=== PATIENT | female | born 1990 | race African-American/Black ===

== ENCOUNTER 2018-05-23 14:46 | Emergency (ER) | payer OTHER ==
[~2018-05-23] VITALS: Ht 157.5 cm; Wt 49.9 kg
[2018-05-23] MEDS ORDERED: Sodium Chloride 500ML 500 ML IV ONE (14:49)
[2018-05-23] MEDS ORDERED: Morphine Sulfate 4mg/ml Inj (IV USE ONLY) IVP ONE (15:00)
[2018-05-23 15:09] VITALS: BP 139/88
[2018-05-23 15:32] LABS: ANION GAP 10 mmol/L (5-15); BLOOD UREA NITROGEN 9 mg/dL (7-18); CALCIUM 9.5 MG/DL (8.5-10.1); CARBON DIOXIDE 24 MMOL/L (21-32); CHLORIDE 103 MMOL/L (98-107); CREATININE 0.9 MG/DL (0.55-1.30); POTASSIUM 3.5 MMOL/L (3.5-5.1); SODIUM 137 MMOL/L (136-145)
[2018-05-23 15:35] LABS: BASOPHILS % (AUTO) 0.3 % (0.0-2.0); EOSINOPHILS % (AUTO) 0.5 % (0.0-3.0); HEMOGLOBIN 13.9 G/DL (12.0-16.0); LYMPHOCYTES % (AUTO) 14.4 % (20.0-45.0); MEAN CORPUSCULAR VOLUME 76 FL (80-99); MONOCYTES % (AUTO) 2.3 % (1.0-10.0); NEUTROPHILS % (AUTO) 82.5 % (45.0-75.0); PLATELET COUNT 258 K/UL (150-450); RED BLOOD COUNT 5.82 M/UL (4.20-5.40); RED CELL DISTRIBUTION WIDTH 11.6 % (11.6-14.8); WHITE BLOOD COUNT 8.2 K/UL (4.8-10.8)
--- NOTE | 2018-05-23 15:36 | Emergency Room Report ---
History of Present Illness General Chief Complaint: Abdominal Pain Source: Patient Present Illness HPI 27-year-old female presents ED complaining of abdominal pain. Brought in by EMS. States pain started 2 days ago. Sudden onset. Pain is suprapubic, 9 out of 10, sharp, nonradiating. Notes nausea and vomiting. Patient states she's been told she has ovarian cysts in the past. States that she is supposed follow -up with [facility] but has not yet done so. No other aggravating relieving factors. Denies any other associated symptoms Allergies: Coded Allergies: No Known Allergies (Unverified , 05/23/18) Patient History Past Medical History: none Past Surgical History: none Pertinent Family History: none Social History: Denies: smoking, alcohol use, drug use Last Menstrual Period: 05/21/18 Now: No Immunizations: UTD Reviewed Nursing Documentation: PMH: Agreed; PSxH: Agreed Nursing Documentation-PMH Past Medical History: No Stated History Review of Systems All Other Systems: negative except mentioned in HPI Physical Exam Vital Signs Date Time Temp Pulse Resp B/P (MAP) Pulse Ox O2 Delivery O2 Flow Rate FiO2 05/23/18 14:45 97.9 76 18 139/88 99 Room Air 97.9 Sp02 EP Interpretation: reviewed, normal General Appearance: alert, GCS 15, non-toxic, mild distress, thin Head: normocephalic, atraumatic Eyes: bilateral eye normal inspection, bilateral eye PERRL ENT: hearing grossly normal, normal pharynx, no angioedema, normal voice Neck: full range of motion, supple/symm/no masses Respiratory: chest non-tender, lungs clear, normal breath sounds, speaking full sentences Cardiovascular #1: regular rate, rhythm, no edema Cardiovascular #2: 2+ carotid (R), 2+ carotid (L), 2+ radial (R), 2+ radial (L) , 2+ dorsalis pedis (R), 2+ dorsalis pedis (L) Gastrointestinal: normal bowel sounds, soft, non-distended, no guarding, no rebound, tenderness - suprapubic Rectal: deferred Genitourinary: normal inspection, no CVA tenderness Musculoskeletal: back normal, gait/station normal, normal range of motion, non- tender Neurologic: alert, oriented x3, responsive, motor strength/tone normal, sensory intact, speech normal Psychiatric: judgement/insight normal, memory normal, mood/affect normal, no suicidal/homicidal ideation Reflexes: 3+ bicep (R), 3+ bicep (L), 3+ tricep (R), 3+ tricep (L), 3+ knee (R) , 3+ knee (L) Skin: normal color, no rash, warm/dry, well hydrated Lymphatic: no adenopathy Medical Decision Making Diagnostic Impression: Primary Impression: Ovarian cyst Qualified Codes: N83.202 - Unspecified ovarian cyst, left side ER Course Hospital Course 27 year-old F presents to ED with lower abdominal pain Differential diagnosis includes- cystitis, UTI, constipation, ovarian cyst/ torsion Clinical course Patient placed on stretcher. After initial history and physical I ordered labs , IV fluids, pain meds, Pelvic US Labs - no leukocytosis, electrolytes ok, LFTs normal, UA no UTI Pelvic US - L hemorrhagic corpus luteum cyst, no free fluid. good flow to ovary noted Discussed findings with patient. Patient feels better. Patient safe for discharge pending close outpatient follow-up with [facility] I feel this is a highly complex case requiring extensive working including EKG/ Rhythm strip, Xray/CT/US, Blood/urine lab work, repeat exams while in ED, and administration of strong opiates/narcotics for pain control, admission to hospital or close patient follow up. Diagnosis - ovarian cyst Stable and discharged to home with Rx Tylenol #3, Zofran. Followup with PMD. Return to ED if symptoms recur or worsen Labs Test 05/23/18 15:00 05/23/18 16:15 White Blood Count 8.2 K/UL (4.8-10.8) Red Blood Count 5.82 M/UL (4.20-5.40) Hemoglobin 13.9 G/DL (12.0-16.0) Hematocrit 44.0 % (37.0-47.0) Mean Corpuscular Volume 76 FL (80-99) Mean Corpuscular Hemoglobin 23.8 PG (27.0-31.0) Mean Corpuscular Hemoglobin Concent 31.5 G/DL (32.0-36.0) Red Cell Distribution Width 11.6 % (11.6-14.8) Platelet Count 258 K/UL (150-450) Mean Platelet Volume 7.4 FL (6.5-10.1) Neutrophils (%) (Auto) 82.5 % (45.0-75.0) Lymphocytes (%) (Auto) 14.4 % (20.0-45.0) Monocytes (%) (Auto) 2.3 % (1.0-10.0) Eosinophils (%) (Auto) 0.5 % (0.0-3.0) Basophils (%) (Auto) 0.3 % (0.0-2.0) Sodium Level 137 MMOL/L (136-145) Potassium Level 3.5 MMOL/L (3.5-5.1) Chloride Level 103 MMOL/L (98-107) Carbon Dioxide Level 24 MMOL/L (21-32) Anion Gap 10 mmol/L (5-15) Blood Urea Nitrogen 9 mg/dL (7-18) Creatinine 0.9 MG/DL (0.55-1.30) Estimat Glomerular Filtration Rate > 60 mL/min (>60) Glucose Level 85 MG/DL (74-106) Calcium Level 9.5 MG/DL (8.5-10.1) Total Bilirubin 1.1 MG/DL (0.2-1.0) Direct Bilirubin 0.2 MG/DL (0.0-0.3) Aspartate Amino Transf (AST/SGOT) 15 U/L (15-37) Alanine Aminotransferase (ALT/SGPT) 12 U/L (12-78) Alkaline Phosphatase 72 U/L (46-116) Total Protein 7.9 G/DL (6.4-8.2) Albumin 4.5 G/DL (3.4-5.0) Globulin 3.4 g/dL Albumin/Globulin Ratio 1.3 (1.0-2.7) Lipase 89 U/L (73-393) Human Chorionic Gonadotropin, Quant < 1 mIU/mL (1-6) Urine Color Stephanie Urine Appearance Clear Urine pH 7 (4.5-8.0) Urine Specific [place] 1.010 (1.005-1.035) Urine Protein 2+ (NEGATIVE) Urine Glucose (UA) Negative (NEGATIVE) Urine Ketones 4+ (NEGATIVE) Urine Occult Blood 5+ (NEGATIVE) Urine Nitrite Negative (NEGATIVE) Urine Bilirubin 1+ (NEGATIVE) Urine Ictotest Negative (NEGATIVE) Urine Urobilinogen 4 MG/DL (0.0-1.0) Urine Leukocyte Esterase 1+ (NEGATIVE) Urine RBC 20-30 /HPF (0 - 2) Urine WBC 0-2 /HPF (0 - 2) Urine Squamous Epithelial Cells Few /LPF (NONE/OCC) Urine Bacteria Few /HPF (NONE) Urine HCG, Qualitative Negative (NEGATIVE) Urine Opiates Screen Positive (NEGATIVE) Urine Barbiturates Screen Negative (NEGATIVE) Phencyclidine (PCP) Screen Negative (NEGATIVE) Urine Amphetamines Screen Negative (NEGATIVE) Urine Benzodiazepines Screen Negative (NEGATIVE) Urine Cocaine Screen Negative (NEGATIVE) Urine Marijuana (THC) Screen Positive (NEGATIVE) CT/MRI/US Diagnostic Results CT/MRI/US Diagnostic Results : Imaging Test Ordered: Pelvic US Impression Uterus measures 7 cm length by 3.4 cm AP. The endometrium measures 2 mm thick. No myometrial abnormality. There is a small cervical nabothian cyst incidentally noted. No myometrial abnormality. The left ovary measures 2.8 cm in length, demonstrates a 12 mm hemorrhagic corpus luteum. The right ovary measures 2.3 cm in length. No adnexal mass. No free cul-de-sac fluid Last Vital Signs Date Time Temp Pulse Resp B/P (MAP) Pulse Ox O2 Delivery O2 Flow Rate FiO2 05/23/18 15:09 98.5 94 18 139/88 99 Room Air 98.5 Status: improved Disposition: HOME, SELF-CARE Condition: Stable Scripts Ondansetron Odt* (ZOFRAN ODT*) 4 Mg Tab.rapdis 4 MG BC EVERY 6 HOURS PRN for Nausea & Vomiting, #30 TAB 0 Refills Prov: Manolo Hurst MD 05/23/18 Acetaminophen With Codeine (T#3) (TYLENOL #3 TAB*) Y Tab 1 TAB ORAL Q8H PRN for For Pain, #20 TAB Prov: Manolo Hurst MD 05/23/18 Manolo Hurst MD May 23, 2018 15:36
[2018-05-23 15:42] LABS: ALANINE AMINOTRANSFERASE 12 U/L (12-78); ALBUMIN 4.5 G/DL (3.4-5.0); ALBUMIN/GLOBULIN RATIO 1.3 (1.0-2.7); ALKALINE PHOSPHATASE 72 U/L (46-116); ASPARTATE AMINO TRANSFERASE 15 U/L (15-37); BILIRUBIN,TOTAL 1.1 MG/DL (0.2-1.0)
[2018-05-23 15:54] LABS: BILIRUBIN,DIRECT 0.2 MG/DL (0.0-0.3)
--- NOTE | 2018-05-23 16:15 | Diagnostic Imaging Report ---
Indication: Pelvic pain, nausea, non patient Technique: Transabdominal and transvaginal images Comparison: none Findings: Uterus measures 7 cm length by 3.4 cm AP. The endometrium measures 2 mm thick. No myometrial abnormality. There is a small cervical nabothian cyst incidentally noted. No myometrial abnormality. The left ovary measures 2.8 cm in length, demonstrates a 12 mm hemorrhagic corpus luteum. The right ovary measures 2.3 cm in length. No adnexal mass. No free cul-de-sac fluid Impression: Essentially unremarkable exam. Small hemorrhagic corpus luteum and small cervical nabothian cyst incidentally noted
[2018-05-23 16:47] LABS: APPEARANCE,URINE CLEAR; BILIRUBIN, URINE 1+ (NEGATIVE); COLOR,URINE AMBER; GLUCOSE, URINE (UA) NEGATIVE (NEGATIVE); KETONES,URINE 4+ (NEGATIVE); LEUKOCYTE ESTERASE ,URINE 1+ (NEGATIVE); NITRITE,URINE NEGATIVE (NEGATIVE); PH,URINE 7 (4.5-8.0); PROTEIN,URINE 2+ (NEGATIVE); UROBILINOGEN,URINE 4 MG/DL (0.0-1.0)
[2018-05-23] MEDS ORDERED: ONDANSETRON ODT4 MG BC (17:23)
[2018-05-23] MEDS ORDERED: ACETAMINOPHEN-1 EAC1 ORAL (17:23)
[2018-05-23 17:29] VITALS: BP 109/71
== END 2018-05-23 18:45 | disposition home or self-care (01) ==
LOC: EDBD 14:46 → EMR 15:08
DX: N83.202 Unspecified ovarian cyst, left side (principal)
CPT/HCPCS: 36415; 76830; 76856; 80053; 80307; 81003; 81025; 82248; 83690; 84702; 85025; 96374; 96375; 99284; J2270; J2405; J7040